=== PATIENT | female | born 1950 | race Two or more races ===

== ENCOUNTER 2018-09-27 15:58 | Inpatient (IN) | payer OTHER ==
[~2018-09-27] VITALS: Ht 165.1 cm; Wt 85.3 kg
[~2018-09-27 15:58] MED LIST: COUMADIN7.5 MG PO; DYAZIDE 37.5-21 EACH PO; ENALAPRIL MALEA20 MG PO; GLIPIZIDE10 MG PO; GLUMETZA1000 MG PO; HYDRALAZINE HCL25 MG PO; LIPITOR20 MG PO; LOPRESSOR25 MG PO; METOPROLOL SUC100 MG PO; NIFE60TA3 PO; VASOTEC5 MG PO
[2018-10-01] MEDS ORDERED: HYDROCHLOROTHIA25 MG PO (15:39)
[2018-10-01] MEDS ORDERED: LOPRESSOR25 MG PO (15:39)
[2018-10-01] MEDS ORDERED: GLIPIZIDE10 MG PO (15:39)
[2018-10-01] MEDS ORDERED: COUMADIN7.5 MG PO (15:39)
[2018-10-01] MEDS ORDERED: Lantus 1000 UNITS/10 SUBCUTANEO (15:39)
[2018-10-01] MEDS ORDERED: Neurin-Sl Tablet Sl SL (15:39)
[2018-10-01] MEDS ORDERED: LIPITOR20 MG PO (15:39)
[2018-10-01] MEDS ORDERED: HYDRALAZINE HCL25 MG PO (15:39)
[2018-10-01] MEDS ORDERED: NEURONTIN300 MG PO (15:39)
[2018-10-01] MEDS ORDERED: ENALAPRIL MALEA20 MG PO (15:39)
[2018-10-01] MEDS ORDERED: FAMOTIDINE20 MG PO (15:39)
[2018-10-01] MEDS ORDERED: B Complex CAPSULE PO (15:39)
[2018-10-01] MEDS ORDERED: OYSTER SHELL C500 M1 PO (15:39)
[2018-10-01] MEDS ORDERED: NIFE60TA3 PO (15:39)
[2018-10-01] MEDS ORDERED: GLUMETZA1000 MG PO (15:39)
[2018-10-01] MEDS ORDERED: LOVENOX80 MG/0.8 SUBCUTANEO (15:39)
[2018-10-06] MEDS ORDERED: TRAM1TAB98 PO (18:00)
== END 2018-10-06 19:53 | disposition home or self-care (01) | DRG 683 ==
LOC: ER 15:58 → MEDI 09-28 10:56 → SEC-K 09-28 10:56 → MEDI 09-28 16:20 → MEDJ 10-01 17:38
PROVIDERS: ADMIT Internal Medicine Geriatric Medicine
PROC: 30233N1 Transfusion of Nonautologous Red Blood Cells into Peripheral Vein, Percutaneous Approach (ICD-10-PCS; principal; 2018-09-29)
DX: N17.8 Other acute kidney failure (principal); D68.59 Other primary thrombophilia; I82.5Z3 Chronic embolism and thrombosis of unspecified deep veins of distal lower extremity, bilateral; E86.0 Dehydration; E87.8 Other disorders of electrolyte and fluid balance, not elsewhere classified; E78.49 Other hyperlipidemia; K52.89 Other specified noninfective gastroenteritis and colitis; R31.29 Other microscopic hematuria; E11.22 Type 2 diabetes mellitus with diabetic chronic kidney disease; I12.9 Hypertensive chronic kidney disease with stage 1 through stage 4 chronic kidney disease, or unspecified chronic kidney disease; N18.2 Chronic kidney disease, stage 2 (mild); Z79.4 Long term (current) use of insulin; Z79.01 Long term (current) use of anticoagulants; R25.2 Cramp and spasm; E83.51 Hypocalcemia; R53.1 Weakness; D35.1 Benign neoplasm of parathyroid gland